=== PATIENT | female | born 1940 | race Caucasian/White ===

== ENCOUNTER 2018-08-08 07:33 | Day surgery (SDC) | payer OTHER ==
[~2018-08-08 07:33] MED LIST: LEVEMIR100 UNIT/1; NOVOLOG FL100 UNIT/1
== END 2018-08-08 12:50 | disposition home or self-care (01) ==
LOC: AMB-ENDOS 07:33
DX: K62.4 Stenosis of anus and rectum (principal); K64.1 Second degree hemorrhoids

== ENCOUNTER 2019-04-24 06:30 | Day surgery (SDC) | payer OTHER | END 2019-04-24 13:05 | disposition home or self-care (01) | LOC: AMB-ENDOS 06:30 | DX: K62.4 Stenosis of anus and rectum (principal); D12.8 Benign neoplasm of rectum; K92.1 Melena ==

== ENCOUNTER 2020-11-11 08:49 | Day surgery (SDC) | payer OTHER | END 2020-11-11 14:50 | disposition home or self-care (01) | LOC: AMB-ENDOS 08:49 | PROVIDERS: ATTEND Colon & Rectal Surgery | DX: D12.8 Benign neoplasm of rectum (principal); Z20.822 Contact with and (suspected) exposure to COVID-19; K64.1 Second degree hemorrhoids; K62.4 Stenosis of anus and rectum ==

== ENCOUNTER 2021-12-27 07:25 | Day surgery (SDC) | payer OTHER | END 2021-12-27 10:10 | disposition home or self-care (01) | LOC: AMB-ENDOS 07:25 → CIR.AMB 14:00 | PROVIDERS: ATTEND Colon & Rectal Surgery | DX: D12.8 Benign neoplasm of rectum (principal); Z20.822 Contact with and (suspected) exposure to COVID-19; E11.9 Type 2 diabetes mellitus without complications; I10 Essential (primary) hypertension; Z86.010 Personal history of colon polyps ==

== ENCOUNTER 2023-01-16 06:20 | Day surgery (SDC) | payer OTHER | END 2023-01-16 11:00 | disposition home or self-care (01) | LOC: AMB-ENDOS 06:20 | PROVIDERS: ATTEND Colon & Rectal Surgery | DX: D12.8 Benign neoplasm of rectum (principal); K62.82 Dysplasia of anus; K57.30 Diverticulosis of large intestine without perforation or abscess without bleeding; K64.1 Second degree hemorrhoids; K62.4 Stenosis of anus and rectum; K92.1 Melena; Z86.010 Personal history of colon polyps; Z20.822 Contact with and (suspected) exposure to COVID-19 ==

== ENCOUNTER 2024-03-03 05:52 | Day surgery (SDC) | payer OTHER ==
[2024-03-03] MEDS ORDERED: MIDAZOLAM HCL 2 MG/2 ML VIAL IV ONE (11:45)
[2024-03-03] MEDS ORDERED: DIPHENHYDRAMINE HCL 50 MG/ML VIAL 1ML IV ONE (11:45)
[2024-03-03] MEDS ORDERED: fentaNYL CITRATE 50 MCG/ML AMPUL IV PUSH ONE (11:45)
== END 2024-03-03 12:40 | disposition home or self-care (01) ==
LOC: AMB-ENDOS 05:52
PROVIDERS: ATTEND Colon & Rectal Surgery
DX: K63.5 Polyp of colon (principal); K57.30 Diverticulosis of large intestine without perforation or abscess without bleeding; Z88.6 Allergy status to analgesic agent; Z88.8 Allergy status to other drugs, medicaments and biological substances